=== PATIENT | male | born 1990 | race Caucasian/White ===

== ENCOUNTER 2018-07-15 23:38 | Emergency (ER) | payer SELFPAY ==
[~2018-07-15] VITALS: Ht 175.3 cm; Wt 57.1 kg
[2018-07-15 23:46] VITALS: BP 131/76; PULSE 77; RESP 18; Ht 175.3 cm; Wt 57.1 kg
== END 2018-07-16 01:05 | disposition left against medical advice (07) ==
LOC: FTE 23:38
DX: Z53.21 Procedure and treatment not carried out due to patient leaving prior to being seen by health care provider (principal)